=== PATIENT | female | born 2000 | race Caucasian/White ===

== ENCOUNTER 2025-04-04 12:10 | Emergency (ER) | payer MEDICAID | END 2025-04-04 14:14 | disposition left against medical advice (07) | LOC: ER 12:12 | DX: F41.9 Anxiety disorder, unspecified (principal); Z53.21 Procedure and treatment not carried out due to patient leaving prior to being seen by health care provider ==

== ENCOUNTER 2025-07-30 07:50 | Emergency (ER) | payer MEDICAID ==
[~2025-07-30] VITALS: Ht 152.4 cm; Wt 56.7 kg
[2025-07-30 07:57] VITALS: TEMP 97.3
[2025-07-30] MEDS ORDERED: HYDR-3686 PO (09:05)
--- NOTE | 2025-07-30 09:06 | Physician Documentation ---
History of Present Illness ~ Chief Complaint: Anxiety Stated Complaint: BLOODY EMSIS Time Seen by MD: 08:47 Source: patient, family Mode of Arrival: POV Exam Limitations: no limitations HPI 24-year-old female with anxiety does see daylin Adhikari [facility] just recently having labs but has been fully diagnosed with an anxiety disorder but has used hydroxyzine in the past requesting hydroxyzine refill until follow up with lizz Adhikari for further treatment and evaluation of anxiety and panic attacks history of dairy intolerance as well. No known triggers to the anxiety possibly recent holiday no suicidal homicidal ideations Medication Reconciliation Allergies: Coded Allergies: haloperidol (Verified Allergy, Unknown, 07/30/25) Past Medical History Past Medical History: *PSYCH*, Anxiety, Panic Disorder Past Surgical History: noncontributory Alcohol Use: Rarely Lives with: Family Lives In: Home Review of Systems All Other Systems at this time: Reviewed and Negative Psychiatric: Reports: see HPI Physical Exam Vital Signs: RN Vital Signs have been reviewed: Yes, Temperature: 97.3, Source: Temporal, Heart Rate: 58, Respiratory Rate: 16, BP: 115/72, Pulse Oximetry: 95, Weight: 56.700 Oxygen Flow Rate: 0 Physical Exam General: Alert, no apparent distress. HEENT: moist mucous membranes. Neck: Full range of motion. Respiratory: No respiratory distress speaking in full sentences Chest: No accessory muscle use. Cardiovascular: Appears well perfused Neurologic: Oriented x4. Psychiatric: Anxious appearing Skin: Normal color, warm and dry. No edema, no ecchymosis. Progress Results/Orders Results/Orders Vital Signs 07/30/25 07:57 Temp 97.3 Pulse 58 Resp 16 B/P (MAP) 115/72 Pulse Ox 95 O2 Flow Rate 0 Medical Decision Making Additional information obtaine: old records Findings We will refill hydroxyzine and states that she has some nausea from her panic attack with like Zofran. Patient will follow up with lizz Adhikari although unknown appointment date but states his in August. Differential Dx:Considerations: Include: Alcohol abuse, Anxiety, Bipolar disorder, Panic disorder, Personality disorder, Substance abuse, Suicidal Departure Time of Disposition: 09:05 Disposition: 01 HOME / SELF CARE / HOMELESS Impression: Primary Impression: Anxiety attack Condition: Stable Discharge Instructions: Panic Attack Additional Instructions: Maintain follow up appointment with lizz Zavaleta take medication as prescribed Referrals: NO PRIMARY CARE PROVIDER (PCP) Prescriptions Hydroxyzine Hcl* (Atarax*) 25 Mg Tablet 1 TAB PO Q8H for anxiety for 30 Days, #90 TAB Prov: ANNE DESAI NP 07/30/25 Education Educated: Patient, Family Educated regarding: diagnosis, treatment, need for follow up Signature Scribe Signature: No scribed Attestation: The note accurately reflects work and decisions made by me.Anne Desai - [employer] 07/30/25 09:06 ANNE DESAI NP Jul 30, 2025 09:06
[2025-07-30] MEDS: ondansetron 4mg rapidly disintigrating tab PO ONE (09:11)
[2025-07-30 09:17] VITALS: BP 127/75; PULSE 63; RESP 16; O2SAT 99
== END 2025-07-30 09:18 | disposition home or self-care (01) ==
LOC: ER 07:50
DX: F41.0 Panic disorder [episodic paroxysmal anxiety] (principal); Z88.8 Allergy status to other drugs, medicaments and biological substances
CPT/HCPCS: 99283; Q0177